=== PATIENT | female | born 1995 | race African-American/Black ===

== ENCOUNTER 2021-03-23 22:49 | Emergency (ER) | payer OTHER ==
[2021-03-23 22:55] VITALS: BP 112/66
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
== END 2021-03-24 00:44 | disposition home or self-care (01) ==
LOC: ED 22:49
DX: S00.03XA Contusion of scalp, initial encounter (principal); V49.59XA Passenger injured in collision with other motor vehicles in traffic accident, initial encounter; Y93.89 Activity, other specified; Y92.89 Other specified places as the place of occurrence of the external cause; Y99.8 Other external cause status
CPT/HCPCS: 99282